=== PATIENT | male | born 1995 | race Caucasian/White ===

== ENCOUNTER 2023-12-07 08:43 | Emergency (ER) | payer SELFPAY ==
[2023-12-07 08:47] VITALS: BP 150/92; PULSE 86; RESP 20; TEMP 98.2; BMI 37.1
[2023-12-07] MEDS ORDERED: FLUORESCEIN NA 1 EA STRIP ONE ×2 (08:57→09:00)
[2023-12-07] MEDS ORDERED: TETRACAINE 0.5% OPHTH SOLN 2 ML BOTTLE ONE (08:58)
[2023-12-07] MEDS: TETRACAINE 0.5% OPHTH SOLN 2 ML BOTTLE OD ONE (09:11)
[2023-12-07] MEDS: FLUORESCEIN NA 1 EA STRIP OD ONE (09:12)
== END 2023-12-07 09:45 | disposition home or self-care (01) ==
LOC: JERFT 08:43
DX: S05.01XA Injury of conjunctiva and corneal abrasion without foreign body, right eye, initial encounter (principal); H57.89 Other specified disorders of eye and adnexa; X58.XXXA Exposure to other specified factors, initial encounter
CPT/HCPCS: 99283-25

== ENCOUNTER 2024-07-24 09:14 | Emergency (ER) | payer OTHER ==
[2024-07-24 09:24] VITALS: BP 141/91; PULSE 77; RESP 16; TEMP 98.3; BMI 34.9
[2024-07-24] MEDS ORDERED: IBUPROFEN 400 MG TABLET (FP) PO ONE (09:33)
[2024-07-24] MEDS ORDERED: METHOCARBAMOL 500 MG TABLET ONE (09:33)
[2024-07-24] MEDS: IBUPROFEN 400 MG TABLET (FP) PO ONE (09:36)
[2024-07-24] MEDS: METHOCARBAMOL 500 MG TABLET PO ONE (09:37)
== END 2024-07-24 09:41 | disposition home or self-care (01) ==
LOC: JERFT 09:14
DX: M54.6 Pain in thoracic spine (principal)
CPT/HCPCS: 99283-25

== ENCOUNTER 2024-07-31 18:04 | Emergency (ER) | payer OTHER ==
[2024-07-31 18:28] VITALS: RESP 20; BMI 29.8
[2024-07-31] MEDS ORDERED: KETOROLAC TROMETHAMINE 30 MG/1 ML VIAL ONE (21:50)
[2024-07-31] MEDS ORDERED: LIDOCAINE 4% PATCH TP ONE (21:50)
[2024-07-31] MEDS: LIDOCAINE PATCH REMOVAL MC SCH (22:00)
[2024-07-31] MEDS: KETOROLAC TROMETHAMINE 30 MG/1 ML VIAL IVPUSH ONE (22:00)
[2024-07-31] MEDS: LIDOCAINE 5% TOPICAL PATCH TP ONE (22:00)
[2024-07-31 22:17] LABS: BASO % 0.6 % (0-2.0); HEMATOCRIT 48.5 % (35.4-49); HEMOGLOBIN 15.9 GM/dL (11.7-16.9); MCH 28.1 pg (25.7-33.7); MCHC 32.8 g/dl (32.0-35.9); MEAN CELL VOLUME 85.8 fl (80-96); MEAN PLT VOLUME 10.3 fl (7.5-11.1); MONO % 7.9 % (3.8-10.2); NEUT % 55.5 % (42.8-82.8); PLATELET COUNT 230 10^3/uL (134-434); RBC 5.65 M/mm3 (4.00-5.60); RDW 13.5 % (11.9-15.9); WHITE BLOOD COUNT 8.8 K/mm3 (4.0-10.0)
[2024-07-31 22:33] LABS: ALBUMIN 4.1 g/dl (3.4-5.0); BLOOD UREA NITROGEN 16.8 mg/dL (7-18); CALCIUM 9.2 mg/dL (8.5-10.1)
[2024-07-31 22:36] LABS: CREATININE 0.7 mg/dL (0.55-1.3)
[2024-07-31 22:38] LABS: BILIRUBIN,TOTAL 0.4 mg/dL (0.2-1); TOT PROT 7.8 g/dl (6.4-8.2)
[2024-07-31 23:16] LABS: ERYTHROCYTE SEDIMENTATION RATE 4 mm/hr (0-10)
[2024-07-31 23:50] VITALS: BP 135/91; PULSE 88; TEMP 97.9
[2024-08-01] MEDS ORDERED: metFORMIN HCL 500 MG TABLET (FP) ONE (00:40)
[2024-08-01] MEDS: metFORMIN HCL 500 MG TABLET (FP) PO ONE (00:44)
[2024-08-01 01:06] LABS: EPI CELLS 4 /uL (0-25.1); HYALINE CASTS 1 /uL (0-3.1); PH,URINE 5.5 (5.0-8.0); URINE APPEARANCE CLEAR; URINE BACTERIA 18 /uL (0-1359); URINE BILIRUBIN NEGATIVE (NEGATIVE); URINE COLOR YELLOW; URINE GLUCOSE (UA) 3+ (NEGATIVE); URINE KETONE 1+ (NEGATIVE); URINE LEUK ESTERASE NEGATIVE (NEGATIVE); URINE NITRITE NEGATIVE (NEGATIVE); URINE PROTEIN 2+ (NEGATIVE); URINE RBC 15 /uL (0-23.9); URINE UROBILINOGEN 0.2 mg/dL (0.2-1.0); URINE WBC 11 /uL (0-25.8)
== END 2024-08-01 01:39 | disposition home or self-care (01) ==
LOC: JER 18:04
PROC: 3E0333Z Introduction of Anti-inflammatory into Peripheral Vein, Percutaneous Approach (ICD-10-PCS; principal; 2024-07-31)
DX: M54.50 Low back pain, unspecified (principal); R10.31 Right lower quadrant pain; E11.65 Type 2 diabetes mellitus with hyperglycemia
CPT/HCPCS: 36415; 74176-TC; 80053; 81003; 83690; 83735; 85025; 85651; 87077; 87086; 99284-25